=== PATIENT | female | born 1995 | race Caucasian/White ===

== ENCOUNTER 2022-05-01 12:20 | Emergency (ER) | payer OTHER ==
[~2022-05-01] VITALS: Ht 162.6 cm; Wt 81.6 kg
[2022-05-01 12:50] LABS: *BILIRUBIN,URIN NEGATIVE (NEGATIVE); *BLOOD, URINE NEGATIVE (NEGATIVE); *CLARITY,URINE CLEAR (CLEAR); *COLOR,URINE YELLOW (YELLOW); *KETONES,URINE TRACE (NEGATIVE); *URINE HCG, QUAL NEGATIVE (NEGATIVE); *UROBILINOGEN,URINE 0.2 E.U./dl (NORMAL); LEUKOCYTE ESTERASE ,URINE NEGATIVE (NEGATIVE); NITRITE, URINE NEGATIVE (NEGATIVE); UGLUCOSE NEGATIVE (NEGATIVE)
--- NOTE | 2022-05-01 12:50 | NUR ---
MD at bedside for evaluation
[2022-05-01] MEDS ORDERED: KETOROLAC TROMETHAMINE 30 MG INJ IM ONE (13:00)
[2022-05-01] MEDS ORDERED: DIAZEPAM 2 MG TABLET PO ONE (13:00)
[2022-05-01] MEDS ORDERED: DIAZEPAM 2 MG TABLET ONE (13:03)
[2022-05-01] MEDS ORDERED: KETOROLAC TROMETHAMINE 30 MG INJ ONE (13:03)
[2022-05-01 13:05] LABS: BACTERIA,URINE NONE SEEN /HPF (NONE SEEN); RBC,URINE NONE SEEN /HPF (0-3); SQUAMOUS EPITHELIAL CELL,UR FEW /HPF (NONE SEEN); WBC,URINE 0-3 /HPF (0-3)
--- NOTE | 2022-05-01 13:34 | NUR ---
Female tumor registrar accompanied female patient for rectal exam.
[2022-05-01] MEDS ORDERED: IBUP-1955 PO (13:46)
[2022-05-01] MEDS ORDERED: LIDO1ADH71 TD (13:46)
[2022-05-01] MEDS ORDERED: DIAZ2TAB PO (13:46)
[2022-05-01] MEDS ORDERED: METH-807 PO (13:46)
--- NOTE | 2022-05-01 13:55 | NUR ---
Patient discharged to home in stable condition. Written and verbal after care instructions given. Patient verbalizes understanding of instructions. Advised not to drive. Stressed follow up or return to ER for worsening s/s.
[2022-05-01 13:56] VITALS: BP 124/80
== END 2022-05-01 13:57 | disposition home or self-care (01) ==
LOC: ER 12:20
DX: M54.50 Low back pain, unspecified (principal); K92.1 Melena
CPT/HCPCS: 99283; 81001; 84703; 96372; J1885; A4663

== ENCOUNTER 2022-10-02 09:05 | Emergency (ER) | payer OTHER ==
[~2022-10-02] VITALS: Ht 162.6 cm; Wt 81.2 kg
[~2022-10-02 09:05] MED LIST: DIAZ2TAB PO; IBUP-1955 PO; LIDO1ADH71 TD; METH-807 PO
[2022-10-02] MEDS ORDERED: KETOROLAC TROMETHAMINE 15 MG INJ ONE (09:50)
[2022-10-02] MEDS ORDERED: ONDANSETRON 4 MG/2 ML VIAL ONE (09:50)
--- NOTE | 2022-10-02 09:50 | NUR ---
PT IS IN ROOM #1B. DR MCCONNELL EVALUATED THE PT.
[2022-10-02] MEDS ORDERED: MORPHINE SULFATE 4 MG/1 ML DISP.SYRIN ONE (09:51)
[2022-10-02] MEDS ORDERED: MORPHINE SULFATE 4 MG/1 ML DISP.SYRIN IV ONE (10:00)
[2022-10-02] MEDS ORDERED: ONDANSETRON 4 MG/2 ML VIAL IV ONE (10:00)
[2022-10-02] MEDS ORDERED: KETOROLAC TROMETHAMINE 15 MG INJ IVP ONE (10:00)
[2022-10-02] MEDS ORDERED: IBUP-1955 PO (10:14)
[2022-10-02] MEDS ORDERED: LIDO1ADH71 TD (10:14)
[2022-10-02] MEDS ORDERED: HYDR-3974 PO (10:14)
[2022-10-02] MEDS ORDERED: METH-807 PO (10:14)
--- NOTE | 2022-10-02 10:53 | NUR ---
Patient discharged to home in stable condition. Written and verbal after care instructions given. Patient verbalizes understanding of instructions. Stressed follow up or return to ER for worsening s/s.
--- NOTE | 2022-10-02 10:53 | NUR ---
IV removed. Catheter intact and site benign. Pressure and 4x4 gauze applied to site. No bleeding noted.
--- NOTE | 2022-10-02 10:55 | NUR ---
Pt stated she will wait in room 1B, her friend is on the way to pick her up from the ER.
== END 2022-10-02 11:15 | disposition home or self-care (01) ==
LOC: ER 09:05
DX: M54.42 Lumbago with sciatica, left side (principal)
CPT/HCPCS: 99284; 96374; 96375; J1885; J2405; J2270; A4663